=== PATIENT | female | born 1955 | race Caucasian/White ===

== ENCOUNTER 2017-08-20 15:04 | Outpatient (CLI) | payer OTHER ==
--- NOTE | 2017-08-21 15:00 | Mammography Report ---
DIGITAL SCREENING MAMMOGRAM: 08/20/2017 CLINICAL INDICATION: A 62-year-old with history of late childbearing for screening. COMPARISON: 11/2007. TECHNIQUE: Routine CC and MLO projections were obtained of the breasts. FINDINGS: Parenchymal tissue within the breasts is predominantly fatty replaced. There are no dominant masses, suspicious microcalcifications, or secondary signs of malignancy. In comparison to the previous studies, there are no significant changes. IMPRESSION: NO MAMMOGRAPHIC EVIDENCE OF MALIGNANCY. NO SIGNIFICANT INTERVAL CHANGES. RECOMMENDATION: Screening mammography is recommended annually. BIRADS CATEGORY 1 - NEGATIVE. STANDARD QUALIFYING STATEMENTS: 1. This examination was reviewed with the aid of Computed-Aided Detection (CAD). 2. A negative or benign imaging report should not delay biopsy if clinically suspicious findings are present. Consider surgical consultation if warranted. More than 5% of cancers are not identified by imaging. 3. Dense breasts may obscure an underlying neoplasm. TD: 08/21/2017 14:33
== END 2017-08-20 15:05 | disposition home or self-care (01) ==
LOC: DI 15:04
PROVIDERS: ATTEND Family Medicine
DX: Z12.31 Encounter for screening mammogram for malignant neoplasm of breast (principal)
CPT/HCPCS: 77067

== ENCOUNTER 2018-05-25 11:05 | Outpatient (CLI) | payer MEDICARE, OTHER | END 2018-05-25 11:06 | disposition critical access hospital (66) | LOC: EMS 11:05 | PROVIDERS: ATTEND Surgery | DX: R50.9 Fever, unspecified (principal); R11.2 Nausea with vomiting, unspecified; R19.7 Diarrhea, unspecified | CPT/HCPCS: A0425; A0427 ==

== ENCOUNTER 2018-05-25 11:21 | Emergency (ER) | payer MEDICARE, OTHER ==
--- NOTE | 2018-05-25 11:42 | ED Physician Documentation ---
PD HPI NVD - Stated complaint Stated Complaint: N/V/D - Chief complaint Chief Complaint: General - History obtained from History obtained from: Patient - History of Present Illness Timing - onset: How many days ago (few) Timing - duration: Days (few) Timing - details: Abrupt onset, Still present Associated symptoms: Fever, Other (vomiting and diarrhea but also with cough and congestion, fever, weakness.). No: Near syncope / syncope Contributing factors: No: Sick contact Worsened by: Eating Similar symptoms before: Has not had sx before Recently seen: Not recently seen Review of Systems Constitutional: reports: Fever, Chills, Myalgias, Fatigue Nose: reports: Congestion Respiratory: reports: Dyspnea, Cough GI: reports: Nausea, Vomiting, Diarrhea Neurologic: reports: Generalized weakness, Headache. denies: Altered mental status PD PAST MEDICAL HISTORY - Past Medical History Past Medical History: Yes Cardiovascular: None Respiratory: Asthma Endocrine/Autoimmune: Type 2 diabetes Musculoskeletal: Other Derm: Psoriasis, Other - Past Surgical History General: Appendectomy /ATTENDING RADIOLOGIST: section - Present Medications Home Medications: Ambulatory Orders Medication Instructions Recorded Confirmed Aspirin [Aspirin EC] 81 mg PO DAILY 05/31/17 05/31/17 Fluocinonide/Emollient Base 30 gm TP BID 05/31/17 05/31/17 [Fluocinonide-E 0.05% Cream] Metformin HCl 500 mg PO QDBREAKFAST 05/31/17 05/31/17 Peppermint Oil [Peppermint] 30 ml PO BID PRN 05/31/17 05/31/17 Potassium/Calcium/Magnes/Manga 1 each PO DAILY PRN 05/31/17 05/31/17 [Emergen-C Electro Mix Packet] Triamcinolone 0.1% Oint [Kenalog 0 gm TOP BID 05/31/17 05/31/17 0.1% Oint] Dexamethasone [Decadron] 4 mg PO DAILY #5 tablet 05/25/18 Levalbuterol [Xopenex] 1 - 2 puffs INH Q4-6H PRN #1 05/25/18 inhaler Ondansetron Odt [Zofran] 4 mg TL Q6H PRN #10 tablet 05/25/18 Oseltamivir [Tamiflu] 75 mg PO BID #10 capsule 05/25/18 - Allergies Allergies/Adverse Reactions: Allergies Allergy/AdvReac Type Severity Reaction Status Date / Time Latex, Natural Rubber Allergy Hives Verified 05/25/18 11:28 Sulfa (Sulfonamide Allergy Rash Verified 05/25/18 11:28 Antibiotics) albuterol AdvReac jerking Verified 05/25/18 11:28 and muscle spasms cortisone AdvReac burn Verified 05/25/18 11:28 montelukast [From Singulair] AdvReac jerking Verified 05/25/18 11:28 and muscle spasms multiple chemical Allergy Respiratory Uncoded 05/25/18 11:28 sensitivities - Social History Does the pt smoke?: No Smoking Status: Never smoker Does the pt drink ETOH?: Yes Does the pt have substance abuse?: No - Immunizations Immunizations are current?: Yes - POLST Patient has POLST: No PD ED PE NORMAL - Vitals Vital signs reviewed: Yes - General General: Alert and oriented X 3, Well developed/nourished - HEENT HEENT: Ears normal, Pharynx benign. No: Moist mucous membranes - Neck Neck: Supple, no meningeal sign, No adenopathy - Cardiac Cardiac: RRR, No murmur - Respiratory Respiratory: No: Clear bilaterally (some exp wheezing; no coarse sounds.) - Abdomen Abdomen: Normal bowel sounds, Soft, Non tender, Non distended, No organomegaly - Back Back: No CVA TTP - Derm Derm: Normal color, Warm and dry - Extremities Extremities: No deformity, No tenderness to palpate, No edema, No calf tenderness / cord - Neuro Neuro: Normal speech Results - Vitals Vitals: Oxygen O2 Source Room air - Labs Labs: Laboratory Tests 05/25/18 11:30 Influenza A (Rapid) POSITIVE H Influenza B (Rapid) Negative - Rads (name of study) chest xray Radiology: Prelim report reviewed, EMP read contemporaneously PD MEDICAL DECISION MAKING - ED course Complexity details: reviewed results (normal chest xray), considered differential, d/w patient Departure - Departure Disposition: 01 Home, Self Care Clinical Impression: Influenza A Exacerbation of asthma Qualifiers: Asthma severity: mild Asthma persistence: intermittent Qualified Code(s): J45.21 - Mild intermittent asthma with (acute) exacerbation Condition: Stable Record reviewed to determine appropriate education?: Yes Instructions: Asthma Dc, ED Flu Follow-Up: Shila Gonzalez MD [Primary Care Provider] - Prescriptions: Dexamethasone [Decadron] 4 mg PO DAILY #5 tablet Levalbuterol [Xopenex] 1 - 2 puffs INH Q4-6H PRN #1 inhaler PRN Reason: Wheezing Ondansetron Odt [Zofran] 4 mg TL Q6H PRN #10 tablet PRN Reason: Nausea / Vomiting Oseltamivir [Tamiflu] 75 mg PO BID #10 capsule Comments: Use the Xopenex inhaler 1-2 puffs every 4-6 hours (4 times a day) for the next week. Added times if needed for wheezing and trouble breathing. Ondansetron if needed for nausea. Decadron steroid daily for the next 5 days to help with bronchial inflammation and improve on the asthma. Tamiflu twice daily for 5 days for the to help with the flu symptoms. Stay well-hydrated. Tylenol if needed for fevers or pains. Follow up with your primary care later this week for a recheck on how you are doing. Call tomorrow for an appointment. Discharge Date/Time: 05/25/18 15:38
[2018-05-25] MEDS ORDERED: LEVALBUTEROL 1.25 MG/3 ML NEB INH STA (12:08)
[2018-05-25] MEDS ORDERED: SODIUM CHLORIDE 0.9% 1,000 ML IV ONE ×2 (12:08→12:45)
[2018-05-25] MEDS ORDERED: BENZONATATE 100 MG CAPSULE PO STA (12:09)
[2018-05-25] MEDS ORDERED: DEXAMETHASONE 10 MG/ML VIAL PO STA (12:09)
[2018-05-25] MEDS ORDERED: ONDANSETRON 4 MG/2 ML VIAL IVP STA (12:09)
[2018-05-25] MEDS ORDERED: OSELTAMIVIR 75 MG CAPSULE PO STA (12:11)
--- NOTE | 2018-05-25 13:37 | XRAY Report ---
Reason: cough and wheezing Procedure Date: 05/25/2018 Accession Number: [id number] / [id number] Procedure: XR - Chest 1 View X-Ray CPT Code: 37012 FULL RESULT: EXAM: CHEST RADIOGRAPHY EXAM DATE: 05/25/2018 01:19 PM. CLINICAL HISTORY: Cough and wheezing. COMPARISON: None. TECHNIQUE: 1 view. FINDINGS: Lungs/Pleura: No focal opacities evident. No pleural effusion. No pneumothorax. Mediastinum: Within exam limitations, the cardiomediastinal contour is normal. Other: None. IMPRESSION: Negative chest. RADIA
[2018-05-25 13:56] VITALS: BP 134/57
== END 2018-05-25 15:38 | disposition home or self-care (01) ==
LOC: EDUNIT# → ED 11:21
DX: J10.89 Influenza due to other identified influenza virus with other manifestations (principal); J45.21 Mild intermittent asthma with (acute) exacerbation; E11.9 Type 2 diabetes mellitus without complications; Z79.84 Long term (current) use of oral hypoglycemic drugs
CPT/HCPCS: 71045; 87275; 87276; 94640; 96361; 96374; 99283; A9270

== ENCOUNTER 2020-01-20 07:15 | Outpatient (CLI) | payer MEDICARE, OTHER ==
[2020-01-20] MEDS: TC-99M/TETROFOSMIN 1.38 MG/30 ML VIAL IVP ONE (10:05)
[2020-01-20] MEDS ORDERED: REGADENOSON 0.4 MG/5 ML SYRINGE IVP ONE (11:23)
[2020-01-20] MEDS ORDERED: AMINOPHYLLINE 500 MG/20 ML VIAL ONE (11:24)
[2020-01-20] MEDS: REGADENOSON 0.4 MG/5 ML SYRINGE IVP ONE (12:05)
--- NOTE | 2020-01-20 14:02 | CARDIAC PROCEDURE NOTE ---
DATE OF SERVICE: 01/20/2020 Physician: Jia Martinez MD, [facility] INDICATION: Chest pain. CARDIAC RISK FACTORS: Diabetes, obesity, postmenopausal status, hypertension, hyperlipidemia, family history of early heart disease. DESCRIPTION OF PROCEDURE: After signing informed consent, the patient underwent a Lexiscan pharmaceutical stress test with nuclear myocardial perfusion imaging. RESTING HEART RATE: 71. PEAK HEART RATE: 101. RESTING BLOOD PRESSURE: 153/70. PEAK BLOOD PRESSURE: 180/84. Lexiscan was infused per protocol. The patient had brief flushing, shortness of breath and developed her typical chest pain, which she rated 2/10 that resolved on its own in less than 4 minutes. RESTING EKG: Normal sinus rhythm, QS waves in V1 and V2, poor R-wave progression, lateral T-wave flattening. EKG AT PEAK: No new ST segment or T-wave changes. SUMMARY 1. Abnormal resting EKG. 2. Patient developed typical brief symptoms using pharmaceutical stress. 3. No EKG changes develop to suggest ischemia. 3. Nuclear images showed: No scar, no areas of ischemia, normal LVEF of >70%. IMPRESSION. 1. Normal cardiac stress test. cc: YAN Cornelius TD: 01/20/2020 12:41 GALILEA
--- NOTE | 2020-01-20 18:15 | Nuclear Medicine Report ---
PROCEDURE: Rest and pharmacological stress myocardial perfusion SPECT with gated imaging and ejection fraction INDICATIONS: CHEST PAIN RADIOPHARMACEUTICAL: 10.7 mCi Tc-99m Myoview IV at rest and 32.6 mCi Tc-99m Myoview IV at peak exerc ise. [id number] was performed. TECHNIQUE: Radiopharmaceutical was injected at peak pharmacological stress, and also at rest. SPECT images were obtained. SPECT myocardial perfusion images were displayed in short axis, horizontal lo ng axis, and vertical long axis views. Gated images were reviewed using AutoQUANT software. COMPARISON: None available. FINDINGS: Raw data: There is good myocardial labeling by radiotracer. No significant motion artifacts. Left ventricle function: Gated images demonstrate normal left ventricle wall thickening. No segment al wall motion abnormality. No transient ischemic dilation. The left ventricle resting end-diastoli c volume is normal. Left ventricle stress ejection fraction is >70%; normal values are above 45%. Myocardial perfusion: There is normal distribution of activity in the left and right ventricular kevin cardium. No fixed or reversible perfusion defects. IMPRESSION: 1. Normal myocardial perfusion images. 2. Normal left ventricular volume and systolic function. PQRS ATTESTATIONS: Measure 322 - Is this imaging test primarily performed on a low-risk surgery patient for preoperative evaluation within 30 days preceding their low-risk non-cardiac surgery? Low-risk surgery is defined as cardiac or myocardial infarction less than 1%, including (but not limited to) endoscopic pr ocedures, superficial procedures, cataract surgery, and excisional breast surgery: Answer: No Measure 323 - Is this imaging test performed primarily for the monitoring of an asymptomatic patient who had percutaneous coronary intervention on the visit date or within 2 years of the visit date? An swer: No Measure 324 - Is this imaging test performed primarily for the initial detection and risk assessment on an asymptomatic, low coronary heart disease patient? Low CHD risk definition = clinicians should consider the maximum number of available patient factors used to estimate risk based on [place] (A TP III criteria), typically age, gender, diabetes, smoking status, and use of blood pressure medicati on, and integrate age appropriate estimates for missing elements, such as LDL or standard blood press ure. Answer: No Reviewed by: Joaquina Gutierrez MD on 01/20/2020 6:13 PM PDT Approved by: Joaquina Gutierrez MD on 01/20/2020 6:13 PM PDT Station ID: [id number]
== END 2020-01-20 07:16 | disposition home or self-care (01) ==
LOC: DI 07:15
PROVIDERS: ATTEND Physician Assistant Medical
DX: R94.31 Abnormal electrocardiogram [ECG] [EKG] (principal); E11.9 Type 2 diabetes mellitus without complications; I10 Essential (primary) hypertension; E78.5 Hyperlipidemia, unspecified; Z82.49 Family history of ischemic heart disease and other diseases of the circulatory system; Z78.0 Asymptomatic menopausal state
CPT/HCPCS: 78452; 93016; 93017; 93018; A9500; A9502; J2785

== ENCOUNTER 2020-02-09 08:00 | Outpatient (CLI) | payer MEDICARE, OTHER ==
[2020-02-09 18:57] LABS: CREATININE,URINE 54.4 mg/dL; MICROALBUM/CREATININE RATIO,UR 36.8 ug/mg (<30.0)
== END 2020-02-09 08:01 | disposition home or self-care (01) ==
LOC: LAB.R 08:00
PROVIDERS: ATTEND Physician Assistant Medical
DX: E11.9 Type 2 diabetes mellitus without complications (principal)
CPT/HCPCS: 82043; 82570

== ENCOUNTER 2020-02-09 11:53 | Outpatient (CLI) | payer MEDICARE, OTHER ==
--- NOTE | 2020-02-09 16:48 | XRAY Report ---
PROCEDURE: Chest 2 View X-Ray INDICATIONS: CHEST PAIN TECHNIQUE: 2 view(s) of the chest. COMPARISON: 05/25/2018. FINDINGS: Surgical changes and devices: None. Lungs and pleura: No pleural effusions or pneumothorax. Lungs are clear. Mediastinum: Mediastinal contours are normal. Heart size is normal. Bones and chest wall: No suspicious bony abnormalities. Soft tissues appear unremarkable. IMPRESSION: Chest without acute cardiopulmonary abnormalities. Reviewed by: Buddy Rodrigez MD on 02/09/2020 4:47 PM PST Approved by: Buddy Rodrigez MD on 02/09/2020 4:47 PM PST Station ID: [id number]
== END 2020-02-09 11:54 | disposition home or self-care (01) ==
LOC: DI.WCP 11:53
PROVIDERS: ATTEND Physician Assistant Medical
DX: R07.9 Chest pain, unspecified (principal); E11.9 Type 2 diabetes mellitus without complications
CPT/HCPCS: 82043; 82570

== ENCOUNTER 2020-06-13 10:42 | Outpatient (CLI) | payer MEDICARE, OTHER ==
--- NOTE | 2020-06-13 12:54 | DEXA Report ---
PROCEDURE: Dexa Spine and/or Hip INDICATIONS: POST MENOPAUSAL TECHNIQUE: Dual energy x-ray absorptiometry (DXA) was performed on a RapidMind System. Regions measur ed are the AP Spine, femoral neck, and if needed forearm. COMPARISON: None. FINDINGS: Lumbar Spine: Bone Mineral Density 1.260 g/cm/cm,T score 0.5, normal Left Hip: Bone Mineral Density 1.050 g/cm/cm,T score 0.3, normal Left Femoral Neck: Bone Mineral Density 0.954 g/cm/cm, T score -0.6, normal (T score greater or equal to -1.0: NORMAL) (T score from -1.1 to -2.4: OSTEOPENIA) (T score less than or equal to -2.5 to: OSTEOPOROSIS) Impression: Normal bone mineral density through the lumbosacral spine, left hip overall and the left femoral neck. Patients with diagnosis of osteoporosis or osteopenia should have regular bone mineral density assess ment. For those eligible for Medicare, routine testing is allowed once every 2 years. Testing frequ ency can be increased for patients who have rapidly progressing disease or for those who are receivin g medical therapy to restore bone mass. Reviewed by: Farhan De León MD on 06/13/2020 12:53 PM PDT Approved by: Farhan De León MD on 06/13/2020 12:53 PM PDT Station ID: [id number]
== END 2020-06-13 10:43 | disposition home or self-care (01) ==
LOC: DI 10:42
PROVIDERS: ATTEND Physician Assistant Medical
DX: Z78.0 Asymptomatic menopausal state (principal)

== ENCOUNTER 2020-10-31 13:07 | Outpatient (CLI) | payer MEDICARE, OTHER ==
--- NOTE | 2020-11-01 16:08 | Mammography Report ---
BILATERAL DIGITAL SCREENING MAMMOGRAM 3D/2D: 10/31/2020 CLINICAL: Routine screening. Comparison is made to exam dated: 08/20/2017 mammogram - [facility]. There are sca ttered fibroglandular elements in both breasts. No significant masses, calcifications, or other findings are seen in either breast. There has been no significant interval change. IMPRESSION: NEGATIVE There is no mammographic evidence of malignancy. A 1 year screening mammogram is recommended. This exam was interpreted at Station ID: [id number]. NOTE: For mammograms, a report in lay terms will be sent to the patient. Approximately 15% of breast malignancies will not be visualized mammographically. In the management of a palpable breast mass, a negative mammogram must not discourage biopsy of a clinically suspicious lesion. Electronically Signed By: Davie hall/tulio:10/31/2020 14:12:51 ACR BI-RADS Category 1: Negative 3341F PARENCHYMAL PATTERN: (A) - The breast(s) demonstrate(s) scattered fibroglandular densities. BI-RADS CATEGORY: (1) - 1 RECOMMENDATION: (ANNUAL) - Recommend routine annual screening mammography. [id number] 1 year screening LATERALITY: (B)
== END 2020-10-31 13:08 | disposition home or self-care (01) ==
LOC: DI.N 13:07
DX: Z12.31 Encounter for screening mammogram for malignant neoplasm of breast (principal)

== ENCOUNTER 2021-02-08 08:34 | Outpatient (CLI) | payer MEDICARE, OTHER ==
[2021-02-08 12:40] LABS: ALBUMIN 4.3 g/dL (3.2-5.5); ALBUMIN/GLOBULIN RATIO 1.5 (1.0-2.2); ALKALINE PHOSPHATASE 95 IU/L (42-121); ALT ALANINE AMINOTRANSFERASE 25 IU/L (10-60); AST ASPARTATE AMINOTRANSFERASE 19 IU/L (10-42); BILIRUBIN,TOTAL 1.1 mg/dL (0.2-1.0); BUN - BLOOD UREA NITROGEN 20 mg/dL (6-20); CALCIUM 9.7 mg/dL (8.5-10.3); CARBON DIOXIDE - CO2 27 mmol/L (21-32); CHLORIDE 100 mmol/L (101-111); CHOL/HDL RATIO 2.9 (<4.4); CHOLESTEROL 177 mg/dL; CREATININE 0.8 mg/dL (0.4-1.0); GFR - MDRD 72 (>89); GLUCOSE 180 mg/dL (70-100); HDL CHOLESTEROL 62 mg/dL; LDL CHOLESTEROL,CALCULATED 65 mg/dL; POTASSIUM 3.8 mmol/L (3.5-5.0); SODIUM 137 mmol/L (135-145); TOTAL PROTEIN 7.2 g/dL (6.7-8.2); TRIGLYCERIDES 248 mg/dL; VLDL CHOLESTEROL 50 mg/dL
[2021-02-08 12:42] LABS: ESTIMATED AVERAGE GLUCOSE 166 mg/dL (70-100); HEMOGLOBIN A1c% 7.4 % (4.27-6.07)
[2021-02-08 12:43] LABS: CREATININE,URINE 153.5 mg/dL; MICROALBUM/CREATININE RATIO,UR 31.3 ug/mg (<30.0); MICROALBUMIN,URINE 4.8 mg/dL (0-300.0)
== END 2021-02-08 23:59 | disposition home or self-care (01) ==
LOC: LAB.WCP 08:34
PROVIDERS: ATTEND Physician Assistant Medical
DX: E11.9 Type 2 diabetes mellitus without complications (principal)
CPT/HCPCS: 36415; 80053; 80061; 82043; 82570; 83036; 83721

== ENCOUNTER 2021-11-20 20:37 | Outpatient (CLI) | payer MEDICARE, OTHER ==
--- NOTE | 2021-11-21 09:28 | Ultrasound Report ---
PROCEDURE: Pelvic ultrasound INDICATIONS: MENORRHAGIA TECHNIQUE: Real-time scanning was performed of the pelvic organs, with image documentation. Patient unable to to lerate transvaginal imaging. COMPARISON: None. FINDINGS: Uterus: Uterus is retroverted and normal in size at 6.8 x 3.5 x 5 cm. The myometrium is heterogeneo us. No discrete uterine fibroid is seen. The endometrium measures 10.1 mm in combined thickness. No gross endometrial mass or fluid is noted. Ovaries: Bilateral ovaries are not visualized. No adnexal masses are seen. Other: No pathologic free abdominal or pelvic fluid. IMPRESSION: 1. Thickened endometrium, concerning for endometrial hyperplasia. BROOD STATION MANAGER correlation is recommended. No definite discrete endometrial mass or fluid is seen. 2. Heterogeneous myometrial echotexture, no discrete uterine fibroid is seen. 3. Ovaries are not visualized. No gross adnexal mass is seen. No pelvic free fluid. Reviewed by: Dez Philippe MD on 11/21/2021 9:27 AM PDT Approved by: Dez Philippe MD on 11/21/2021 9:27 AM PDT Station ID: [id number]
== END 2021-11-20 20:38 | disposition home or self-care (01) ==
LOC: DI 20:37
PROVIDERS: ATTEND Physician Assistant Medical
DX: N95.0 Postmenopausal bleeding (principal); R93.89 Abnormal findings on diagnostic imaging of other specified body structures

== ENCOUNTER 2021-12-28 11:08 | Outpatient (CLI) | payer MEDICARE, OTHER ==
[2021-12-28 11:32] LABS: BASOPHILS % (AUTO) 0.4 %; EOSINOPHILS # (AUTO) 0.1 10^3/uL (0.0-0.7); EOSINOPHILS % (AUTO) 2.3 %; HGB - HEMOGLOBIN 12.8 g/dL (12.0-16.0); LYMPHOCYTES # (AUTO) 2.5 10^3/uL (1.5-3.5); LYMPHOCYTES % (AUTO) 47.9 %; MEAN CORPUSCULAR HEMOGLOBIN 28.4 pg (27.0-31.0); MEAN CORPUSCULAR VOLUME 88.9 fL (81.0-99.0); MEAN PLATELET VOLUME 9.1 fL (7.9-10.8); MONOCYTES # (AUTO) 0.4 10^3/uL (0.0-1.0); MONOCYTES % (AUTO) 6.9 %; NEUTROPHILS # (AUTO) 2.2 10^3/uL (1.5-6.6); NEUTROPHILS % (AUTO) 42.3 %; PLT - PLATELET COUNT 201 10^3/uL (130-450); RED CELL DISTRIBUTION WIDTH 13.2 % (12.0-15.0); WHITE BLOOD COUNT 5.2 x10^3/uL (4.8-10.8)
[2021-12-28 11:43] LABS: ALBUMIN 4.2 g/dL (3.2-5.5); ALBUMIN/GLOBULIN RATIO 1.4 (1.0-2.2); BILIRUBIN,TOTAL 1.8 mg/dL (0.2-1.0); CALCIUM 9.4 mg/dL (8.5-10.3); CREATININE 0.7 mg/dL (0.4-1.0); POTASSIUM 3.7 mmol/L (3.5-5.0); TOTAL PROTEIN 7.2 g/dL (6.7-8.2)
== END 2021-12-28 11:09 | disposition home or self-care (01) ==
LOC: LAB 11:08
PROVIDERS: ATTEND Obstetrics & Gynecology
DX: Z01.812 Encounter for preprocedural laboratory examination (principal); N95.0 Postmenopausal bleeding; C55 Malignant neoplasm of uterus, part unspecified; N84.0 Polyp of corpus uteri; E11.9 Type 2 diabetes mellitus without complications
CPT/HCPCS: 36415; 80053; 85025; 86850; 86900; 86901

== ENCOUNTER 2022-02-12 08:53 | Outpatient (CLI) | payer MEDICARE, OTHER ==
[2022-02-12 12:36] LABS: CALCIUM 9.9 mg/dL (8.5-10.3); CREATININE 0.9 mg/dL (0.4-1.0); POTASSIUM 4.4 mmol/L (3.5-5.0)
[2022-02-12 13:06] LABS: ESTIMATED AVERAGE GLUCOSE 126 mg/dL (70-100)
== END 2022-02-12 08:54 | disposition home or self-care (01) ==
LOC: LAB.N 08:53
PROVIDERS: ATTEND Physician Assistant Medical
DX: E11.9 Type 2 diabetes mellitus without complications (principal)
CPT/HCPCS: 36415; 80048; 83036

== ENCOUNTER 2022-05-22 08:50 | Outpatient (CLI) | payer MEDICARE, OTHER ==
[2022-05-22 12:40] LABS: CALCIUM 9.3 mg/dL (8.5-10.3); CREATININE 0.8 mg/dL (0.4-1.0); POTASSIUM 3.6 mmol/L (3.5-5.0)
[2022-05-22 13:04] LABS: ESTIMATED AVERAGE GLUCOSE 151 mg/dL (70-100); HEMOGLOBIN A1c% 6.9 % (4.27-6.07)
== END 2022-05-22 08:51 | disposition home or self-care (01) ==
LOC: LAB.N 08:50
PROVIDERS: ATTEND Physician Assistant Medical
DX: E11.9 Type 2 diabetes mellitus without complications (principal)
CPT/HCPCS: 36415; 80048; 83036

== ENCOUNTER 2022-08-28 08:45 | Outpatient (CLI) | payer MEDICARE, OTHER ==
[2022-08-28 12:08] LABS: ESTIMATED AVERAGE GLUCOSE 157 mg/dL (70-100); HEMOGLOBIN A1c% 7.1 % (4.27-6.07)
[2022-08-28 12:15] LABS: ALBUMIN/GLOBULIN RATIO 1.3 (1.0-2.2); ALKALINE PHOSPHATASE 79 IU/L (42-121); ALT ALANINE AMINOTRANSFERASE 18 IU/L (10-60); AST ASPARTATE AMINOTRANSFERASE 18 IU/L (10-42); BILIRUBIN,TOTAL 1.3 mg/dL (0.2-1.0); BUN - BLOOD UREA NITROGEN 15 mg/dL (6-20); CALCIUM 9.3 mg/dL (8.5-10.3); CARBON DIOXIDE - CO2 29 mmol/L (21-32); CHLORIDE 106 mmol/L (101-111); CHOL/HDL RATIO 2.5 (<4.4); CHOLESTEROL 180 mg/dL; CREATININE 0.9 mg/dL (0.4-1.0); GFR - MDRD 62 (>89); GLUCOSE 182 mg/dL (70-100); HDL CHOLESTEROL 73 mg/dL; LDL CHOLESTEROL,CALCULATED 60 mg/dL; LDL/HDL RATIO 0.8 (<4.4); POTASSIUM 3.8 mmol/L (3.5-5.0); SODIUM 142 mmol/L (135-145); TOTAL PROTEIN 7.1 g/dL (6.7-8.2); TRIGLYCERIDES 236 mg/dL; VLDL CHOLESTEROL 47 mg/dL
== END 2022-08-28 08:46 | disposition home or self-care (01) ==
LOC: LAB.N 08:45
PROVIDERS: ATTEND Physician Assistant Medical
DX: E11.9 Type 2 diabetes mellitus without complications (principal)
CPT/HCPCS: 36415; 80053; 80061; 83036; 83721

== ENCOUNTER 2022-09-24 13:36 | Outpatient (CLI) | payer MEDICARE, OTHER ==
[2022-09-24] MEDS ORDERED: iohexoL-300 100 ML VIAL ONE (15:17)
[2022-09-24] MEDS ORDERED: iohexoL-300 100 ML VIAL IVP ONE (15:19)
[2022-09-24] MEDS ORDERED: DIATRIZOATE MEGLU/DIATRIZO SOD 30 ML BOTTLE PO ONE (15:19)
--- NOTE | 2022-09-24 17:55 | CT Report ---
PROCEDURE: ABDOMEN/PELVIS W INDICATIONS: LEFT LOWER QUAD ABD PAIN CONTRAST: 100ml Omnipaque 300 TECHNIQUE: After the administration of contrast, 5 mm thick sections acquired from the diaphragms to the symphys is. 5 mm thick coronal and sagittal reformats were acquired. For radiation dose reduction, the foll owing was used: automated exposure control, adjustment of mA and/or kV according to patient size. COMPARISON: FINDINGS: Image quality: Excellent. Lung bases and heart: Unremarkable. Liver: No solid mass. Gallbladder and biliary tree: Spleen: No splenomegaly. Pancreas: No pancreatic ductal dilation. Adrenals: No adrenal nodule. Kidneys and ureters: Right kidney is unremarkable. There is a nonobstructing 1.4 x 2.3 cm calculus wi thin the left renal pelvis which measures approximately 1440 Hounsfield units in density. Bowel and peritoneum: No bowel distension. No pathologic free fluid. Scattered diverticular outpouchi ngs are present throughout the sigmoid colon. No mucosal thickening or pericolonic fat stranding. The re is likely a thin-walled, gas-filled appendiceal stump noted. Lymph nodes: No central or retroperitoneal adenopathy. Vessels: No infrarenal aortic aneurysm. PELVIS Reproductive organs: Unremarkable. Bladder: No abnormal wall thickening, accounting for underdistension. Pelvic lymph nodes: No pelvic adenopathy by size criteria. Bones: No aggressive osseous abnormality. Other: No significant ventral or inguinal hernia. IMPRESSION: 1. No acute intra-abdominal findings. Diverticulosis. No acute diverticulitis. 2. Nonobstructive left nephrolithiasis. Reviewed by: Calli Brothers MD on 09/24/2022 5:54 PM PDT Approved by: Calli Brothers MD on 09/24/2022 5:54 PM PDT Station ID: [id number]
== END 2022-09-24 13:37 | disposition home or self-care (01) ==
LOC: DI 13:36
PROVIDERS: ATTEND Physician Assistant Medical
DX: R10.32 Left lower quadrant pain (principal); K57.30 Diverticulosis of large intestine without perforation or abscess without bleeding; N20.0 Calculus of kidney
CPT/HCPCS: 74177; Q9963; Q9967

== ENCOUNTER 2022-11-28 08:57 | Outpatient (CLI) | payer MEDICARE, OTHER ==
[2022-11-28 12:25] LABS: CALCIUM 9.9 mg/dL (8.5-10.3); CREATININE 0.9 mg/dL (0.6-1.3)
[2022-11-28 12:54] LABS: ESTIMATED AVERAGE GLUCOSE 166 mg/dL (70-100); HEMOGLOBIN A1c% 7.4 % (4.27-6.07)
== END 2022-11-28 08:58 | disposition home or self-care (01) ==
LOC: LAB.N 08:57
PROVIDERS: ATTEND Physician Assistant Medical
DX: E11.9 Type 2 diabetes mellitus without complications (principal)
CPT/HCPCS: 36415; 80048; 83036

== ENCOUNTER 2023-02-26 08:41 | Outpatient (CLI) | payer MEDICARE, OTHER ==
[2023-02-26 12:20] LABS: ALBUMIN 4.4 g/dL (3.2-5.5); ALBUMIN/GLOBULIN RATIO 2.1 (1.0-2.2); ALKALINE PHOSPHATASE 79 IU/L (42-121); ALT ALANINE AMINOTRANSFERASE 14 IU/L (10-60); AST ASPARTATE AMINOTRANSFERASE 16 IU/L (10-42); BILIRUBIN,TOTAL 1.3 mg/dL (0.2-1.0); BUN - BLOOD UREA NITROGEN 12 mg/dL (6-20); CALCIUM 9.9 mg/dL (8.5-10.3); CARBON DIOXIDE - CO2 30 mmol/L (21-32); CHLORIDE 107 mmol/L (101-111); CHOL/HDL RATIO 3.3 (<4.4); CHOLESTEROL 179 mg/dL; CREATININE 0.9 mg/dL (0.6-1.3); GFR - MDRD 62 (>89); GLUCOSE 186 mg/dL (74-104); HDL CHOLESTEROL 54 mg/dL; LDL CHOLESTEROL,CALCULATED 68 mg/dL; LDL/HDL RATIO 1.3 (<4.4); POTASSIUM 4.1 mmol/L (3.5-4.5); SODIUM 143 mmol/L (135-145); TOTAL PROTEIN 6.5 g/dL (6.4-8.9); TRIGLYCERIDES 284 mg/dL (48-352); VLDL CHOLESTEROL 57 mg/dL
[2023-02-26 12:28] LABS: ESTIMATED AVERAGE GLUCOSE 146 mg/dL (70-100); HEMOGLOBIN A1c% 6.7 % (4.27-6.07)
== END 2023-02-26 08:42 | disposition home or self-care (01) ==
LOC: LAB.N 08:41
PROVIDERS: ATTEND Physician Assistant Medical
DX: E11.9 Type 2 diabetes mellitus without complications (principal)
CPT/HCPCS: 36415; 80053; 80061; 83036; 83721

== ENCOUNTER 2023-04-25 10:00 | Outpatient (CLI) | payer MEDICARE, OTHER ==
--- NOTE | 2023-04-25 13:23 | XRAY Report ---
PROCEDURE: Chest 2V INDICATIONS: COUGH TECHNIQUE: 2 views of the chest were acquired. COMPARISON: Chest x-ray 02/09/2020. FINDINGS: Surgical changes and devices: None. Lungs and pleura: No pleural effusions or pneumothorax. Lungs are clear. Mediastinum: Mediastinal contours appear normal. Heart size is normal. Bones and chest wall: No suspicious bony lesions. Overlying soft tissues appear unremarkable. IMPRESSION: No acute cardiopulmonary process. Reviewed by: Judah Meyers MD on 04/25/2023 1:22 PM PST Approved by: Judah Meyers MD on 04/25/2023 1:22 PM [facility] Station ID: [id number]
== END 2023-04-25 10:15 | disposition home or self-care (01) ==
LOC: DI.N 10:00
PROVIDERS: ATTEND Family Medicine
DX: R05.9 Cough, unspecified (principal)

== ENCOUNTER 2023-05-28 08:18 | Outpatient (CLI) | payer MEDICARE, OTHER ==
[2023-05-28 12:27] LABS: CALCIUM 9.7 mg/dL (8.5-10.3); CREATININE 0.9 mg/dL (0.6-1.3); POTASSIUM 4.1 mmol/L (3.5-4.5)
[2023-05-28 12:29] LABS: ESTIMATED AVERAGE GLUCOSE 169 mg/dL (70-100); HEMOGLOBIN A1c% 7.5 % (4.27-6.07)
== END 2023-05-28 08:19 | disposition home or self-care (01) ==
LOC: LAB.N 08:18
PROVIDERS: ATTEND Physician Assistant Medical
DX: E11.9 Type 2 diabetes mellitus without complications (principal)
CPT/HCPCS: 36415; 80048; 83036

== ENCOUNTER 2023-06-11 08:22 | Outpatient (CLI) | payer MEDICARE, OTHER ==
--- NOTE | 2023-06-12 11:17 | Mammography Report ---
BILATERAL DIGITAL SCREENING MAMMOGRAM 3D/2D: 06/11/2023 CLINICAL: Routine screening. Comparison is made to exams dated: 10/31/2020 mammogram and 08/20/2017 mammogram - [facility]. There are scattered areas of fibroglandular density in both breasts (category b / 25%-50% glandular t issue). No significant masses, calcifications, or other findings are seen in either breast. There has been no significant interval change. IMPRESSION: NEGATIVE There is no mammographic evidence of malignancy. A 1 year screening mammogram is recommended. Based on the Tyrer Cuzick model (a risk assessment model) the patient's lifetime risk is 9.6% and her 10 year risk is 6.2%. According to the ACR, ACS, and NCCN guidelines, an annual breast MRI exam wilfred g with mammogram is recommended if the patient's lifetime risk is 20% or greater. This exam was interpreted at Station ID: [id number]. NOTE: For mammograms, a report in lay terms will be sent to the patient. Approximately 15% of breast malignancies will not be visualized mammographically. In the management of a palpable breast mass, a negative mammogram must not discourage biopsy of a clinically suspicious lesion. Electronically Signed By: Davie hall/tulio:06/11/2023 12:46:16 letter sent: No_Letter ACR BI-RADS Category 1: Negative 3341F PARENCHYMAL PATTERN: (A) - The breast(s) demonstrate(s) scattered fibroglandular densities. BI-RADS CATEGORY: (1) - 1 RECOMMENDATION: (ANNUAL) - Recommend routine annual screening mammography. [id number] 1 year screening LATERALITY: (B)
== END 2023-06-11 08:23 | disposition home or self-care (01) ==
LOC: DI.N 08:22
DX: Z12.31 Encounter for screening mammogram for malignant neoplasm of breast (principal); R92.323 Mammographic fibroglandular density, bilateral breasts

== ENCOUNTER 2023-08-27 10:04 | Outpatient (CLI) | payer MEDICARE, OTHER ==
[2023-08-27 12:12] LABS: ALBUMIN 4.3 g/dL (3.2-5.5); ALBUMIN/GLOBULIN RATIO 1.9 (1.0-2.2); ALKALINE PHOSPHATASE 79 IU/L (42-121); ALT ALANINE AMINOTRANSFERASE 20 IU/L (10-60); AST ASPARTATE AMINOTRANSFERASE 18 IU/L (10-42); BILIRUBIN,TOTAL 1.7 mg/dL (0.2-1.0); BUN - BLOOD UREA NITROGEN 15 mg/dL (6-20); CALCIUM 10.2 mg/dL (8.5-10.3); CARBON DIOXIDE - CO2 29 mmol/L (21-32); CHLORIDE 105 mmol/L (101-111); CHOL/HDL RATIO 2.9 (<4.4); CHOLESTEROL 170 mg/dL; GFR - MDRD 55 (>89); GLUCOSE 184 mg/dL (74-104); HDL CHOLESTEROL 59 mg/dL; LDL CHOLESTEROL,CALCULATED 70 mg/dL; LDL/HDL RATIO 1.2 (<4.4); POTASSIUM 3.9 mmol/L (3.5-4.5); SODIUM 141 mmol/L (135-145); TOTAL PROTEIN 6.6 g/dL (6.4-8.9); TRIGLYCERIDES 206 mg/dL (48-352); VLDL CHOLESTEROL 41 mg/dL
[2023-08-27 12:36] LABS: ESTIMATED AVERAGE GLUCOSE 180 mg/dL (70-100); HEMOGLOBIN A1c% 7.9 % (4.27-6.07)
== END 2023-08-27 10:05 | disposition home or self-care (01) ==
LOC: LAB.N 10:04
PROVIDERS: ATTEND Physician Assistant Medical
DX: E11.9 Type 2 diabetes mellitus without complications (principal)
CPT/HCPCS: 36415; 80053; 80061; 83036; 83721

== ENCOUNTER 2023-11-26 08:00 | Outpatient (CLI) | payer MEDICARE, OTHER ==
[2023-11-26 12:48] LABS: CALCIUM 9.5 mg/dL (8.5-10.3); CREATININE 0.9 mg/dL (0.6-1.3)
[2023-11-26 12:57] LABS: ESTIMATED AVERAGE GLUCOSE 166 mg/dL (70-100); HEMOGLOBIN A1c% 7.4 % (4.27-6.07)
== END 2023-11-26 23:59 | disposition home or self-care (01) ==
LOC: LAB.N 08:00
PROVIDERS: ATTEND Physician Assistant Medical
DX: E11.9 Type 2 diabetes mellitus without complications (principal)
CPT/HCPCS: 36415; 80048; 83036